=== PATIENT | female | born 1955 | race Caucasian/White ===

== ENCOUNTER 2017-02-19 08:47 | Inpatient (IN) ==
[2017-02-19] MEDS ORDERED: NS 1,000 ML IV PRN (09:02)
[2017-02-19] MEDS ORDERED: NS 1,000 ML IV ONE ×2 (09:12→11:13)
[2017-02-19] MEDS ORDERED: NS 1,000 ML ONE ×2 (09:15→11:25)
[2017-02-19 09:19] LABS: BE 4.3 mmoll (-3.0-3.0); BLOOD TYPE ARTERIAL; DRAW SITE L BRACHIAL; O2(CT) 13.5 mL/dL (15.0-23.0); SAMPLE BLOOD; SAO2 79.3 % (95.0-100.0); THB 13.5 g/dL (11.5-17.4); pH(98.6) 7.35 (7.35-7.45)
[2017-02-19 09:36] LABS: MANUAL DIFF NEEDED? NO
[2017-02-19 09:40] LABS: PCO2(98.6) 57 mmHg (35-45); PO2(98.6) 37 mmHg (60-100)
[2017-02-19 09:41] LABS: ALLEN TEST NO; MODALITY ROOM AIR
--- NOTE | 2017-02-19 09:45 | EKG Report ---
Test Performed on : 02/19/2017 09:35:57 AM Test Reason : stroke like sxs Blood Pressure : / mmHG Vent. Rate : 056 BPM Atrial Rate : 056 BPM P-R Int : 164 ms QRS Dur : 082 ms QT Int : 508 ms P-R-T Axes : 018 040 058 degrees QTc Int : [address] \T\ T wave abnormality, consider anterior ischemia Prolonged QT Abnormal ECG When compared with ECG of 29-SEP-2016 11:40, Non-specific change in ST segment in Inferior leads Nonspecific T wave abnormality no longer evident in Inferior leads T wave inversion more evident in Anterior leads Unconfirmed Result
[2017-02-19] MEDS ORDERED: ZOFRAN ONE (09:47)
[2017-02-19 09:48] LABS: BASO% 0.1 % (0.0-0.8); HEMATOCRIT 38.9 % (37.0-47.0); HEMOGLOBIN 13.8 g/dL (12.0-16.0); IMM GRAN# 0.02 X1000 (0.0-0.04); IMM GRAN% 0.2 % (0.0-0.5); LYMPH# 1.36 X1000 (1.2-3.4); LYMPH% 16.2 % (20.5-51.1); MCH 33.9 PG (27-31); MCHC 35.5 g/dL (33-37); MCV 95.6 FL (81-99); MONO% 4.8 % (1.7-9.3); MPV 8.8 FL (7.4-10.4); NEUT% 78.7 % (42.2-75.2); PLT 189 X1000 (130-400); RBC 4.07 XMIL (4.2-5.4)
[2017-02-19] MEDS ORDERED: ZOFRAN IV ONE (09:52)
[2017-02-19 10:22] LABS: PROTIME 13.5 Seconds (12.1-15.5)
--- NOTE | 2017-02-19 10:22 | Diag Imaging Result Doc PS360 ---
EXAM: HEAD W/O CONTRAST HISTORY: stroke like sxs TECHNIQUE: Dose reduction protocol COMPARISON: 09/28/2016 FINDINGS: No parenchymal hemorrhage. No epidural or subdural hematoma. No subarachnoid hemorrhage. No mass identified on this noncontrasted exam. No hydrocephalus. Mild atrophy. No sinus opacification. IMPRESSION: No hemorrhage. Mild atrophy. Electronically signed by Joss Tobar 02/19/2017 10:20 AM
[2017-02-19 10:23] LABS: PTT PL 25.1 Seconds (22.6-43.9)
--- NOTE | 2017-02-19 10:25 | Diag Imaging Result Doc PS360 ---
EXAM: CHEST-2 VIEWS HISTORY: cough TECHNIQUE: COMPARISON: 09/28/2016 FINDINGS: The lungs are well expanded. The heart is not enlarged. The vessels are not distended. There are no infiltrates. No pleural effusions. IMPRESSION: No pneumonia. Electronically signed by Joss Tobar 02/19/2017 10:23 AM
[2017-02-19 10:40] LABS: ALBUMIN 4.1 g/dL (3.5-5.0); CALCIUM 8.3 mg/dL (8.8-10.2); TOTAL BILIRUBIN 0.7 mg/dL (0.20-1.00); TOTAL PROTEIN 5.7 g/dL (6.3-8.3)
[2017-02-19 10:43] LABS: URINE SOURCE CATH
[2017-02-19 10:47] LABS: BILIRUBIN URINE NEGATIVE (NEGATIVE); BLOOD URINE 2+ (NEGATIVE); CLARITY CLEAR (CLEAR); COLOR YELLOW; GLUCOSE URINE NEGATIVE (NEGATIVE); LEUKOCYTES URINE 1+ (NEGATIVE); NITRITE URINE NEGATIVE (NEGATIVE); PH URINE 6.5; PROTEIN URINE TRACE mg/dL (NEGATIVE); SP GRAVITY URINE 1.015; UROBILINOGEN URINE 1+(1 mg/dL)
[2017-02-19 11:10] LABS: UR AMPHETAMINES QUAL NONE DETECTED (NONE DETECT); UR BARBITUATES QUAL NONE DETECTED (NONE DETECT); UR BENZODIAZEPIN QUAL PRESUMPTIVE POSITIVE (NONE DETECT); UR CANNABINOIDS QUAL NONE DETECTED (NONE DETECT); UR COCAINE QUAL NONE DETECTED (NONE DETECT); UR MDMA QUAL NONE DETECTED (NONE DETECT); UR METHADONE QUAL NONE DETECTED (NONE DETECT); UR METHAMPHETAMINE QUAL NONE DETECTED (NONE DETECT); UR OPIATES QUAL PRESUMPTIVE POSITIVE (NONE DETECT); UR OXYCODONE QUAL NONE DETECTED (NONE DETECT); UR PCP QUAL NONE DETECTED (NONE DETECT); UR TCA QUAL NONE DETECTED (NONE DETECT)
[2017-02-19 11:13] LABS: URINE RBC <10 /HPF (<10)
[2017-02-19 11:14] LABS: URINE CULTURE PL NEEDED? YES; URINE EPITHELIAL CELLS >10 /HPF (<10)
[2017-02-19] MEDS ORDERED: SYNTHROID PO ONE ×2 (11:24→14:00)
[2017-02-19] MEDS ORDERED: CYTOMEL PO ONE (11:30)
[2017-02-19] MEDS: DUONEB (A & A) INH SCH ×4 (12:19→22:57)
[2017-02-19] MEDS ORDERED: FLEXERIL PO ONE (14:02)
[2017-02-19] MEDS ORDERED: AMBIEN PO ONE (18:21)
[2017-02-19] MEDS: LATUDA PO SCH (20:19)
[2017-02-19] MEDS: ZOCOR PO SCH (20:20)
[2017-02-19] MEDS: DESYREL PO SCH (20:20)
[2017-02-19] MEDS: XANAX PO SCH (20:21)
[2017-02-19] MEDS ORDERED: ZOLOFT PO SCH (21:00)
[2017-02-20] MEDS: ZOLOFT PO SCH ×2 (03:15→20:10)
[2017-02-20] MEDS: DUONEB (A & A) INH SCH ×6 (04:10→22:54)
[2017-02-20] MEDS: PRILOSEC PO SCH (07:53)
[2017-02-20] MEDS: SYNTHROID PO SCH (07:54)
[2017-02-20] MEDS: XANAX PO SCH ×3 (07:54→20:10)
[2017-02-20] MEDS: LIBRIUM PO PRN ×2 (09:49→15:57)
[2017-02-20] MEDS: CYTOMEL PO SCH (11:52)
[2017-02-20 16:33] LABS: BE 5.9 mmoll (-3.0-3.0); BLOOD TYPE ARTERIAL; DRAW SITE R RADIAL; METHB 1.2 % (0.0-1.5); O2(CT) 15.5 mL/dL (15.0-23.0); PCO2(98.6) 50 mmHg (35-45); PO2(98.6) 62 mmHg (60-100); SAMPLE BLOOD; SAO2 95.7 % (95.0-100.0); pH(98.6) 7.41 (7.35-7.45)
[2017-02-20 16:39] LABS: MANUAL DIFF NEEDED? NO
[2017-02-20] MEDS: NS 1,000 ML IV SCH (16:39)
[2017-02-20 16:47] LABS: BASO% 0.1 % (0.0-0.8); EOS# 0.01 X1000 (0.0-0.7); EOS% 0.1 % (0.0-10.0); HEMATOCRIT 32.9 % (37.0-47.0); HEMOGLOBIN 11.5 g/dL (12.0-16.0); IMM GRAN# 0.03 X1000 (0.0-0.04); IMM GRAN% 0.3 % (0.0-0.5); LYMPH# 0.95 X1000 (1.2-3.4); LYMPH% 9.5 % (20.5-51.1); MCH 33.2 PG (27-31); MCV 95.1 FL (81-99); MONO# 0.51 X1000 (0.11-0.59); MONO% 5.1 % (1.7-9.3); MPV 8.9 FL (7.4-10.4); NEUT% 84.9 % (42.2-75.2); PLT 153 X1000 (130-400); RBC 3.46 XMIL (4.2-5.4)
[2017-02-20 16:47] LABS: MODALITY CANNULA
[2017-02-20 16:48] LABS: ALLEN TEST YES
[2017-02-20 16:58] LABS: AGAP 13; ALBUMIN 3.4 g/dL (3.5-5.0); ALKALINE PHOSPHATASE 111 U/L (32-104); BUN 10 mg/dL (8-22); CALCIUM 8.1 mg/dL (8.8-10.2); CHLORIDE 85 mmol/L (98-107); COSMO 254; GOT 114 U/L (10-30); GPT 54 U/L (10-36); POTASSIUM 2.7 mmol/L (3.5-5.1); SODIUM 127 mmol/L (136-145); TCO2 30 mmol/L (25-35); TOTAL PROTEIN 5.2 g/dL (6.3-8.3)
[2017-02-20] MEDS: LATUDA PO SCH (20:09)
[2017-02-20] MEDS: ZOCOR PO SCH (20:10)
[2017-02-20] MEDS: DESYREL PO SCH (20:10)
[2017-02-21] MEDS: NS 1,000 ML IV SCH ×4 (01:06→20:37)
[2017-02-21] MEDS: LIBRIUM PO PRN ×3 (01:06→15:54)
[2017-02-21] MEDS: DUONEB (A & A) INH SCH ×6 (03:43→23:26)
[2017-02-21] MEDS: PRILOSEC PO SCH (06:14)
[2017-02-21] MEDS: SYNTHROID PO SCH (06:14)
[2017-02-21] MEDS: CYTOMEL PO SCH (08:59)
[2017-02-21] MEDS: XANAX PO SCH ×2 (08:59→20:34)
[2017-02-21] MEDS ORDERED: TYLENOL PO PRN (16:52)
[2017-02-21] MEDS: KLOR-CON PO SCH ×3 (17:16→19:29)
[2017-02-21] MEDS: ZOCOR PO SCH (20:34)
[2017-02-21] MEDS: DESYREL PO SCH (20:34)
[2017-02-21] MEDS: ZOLOFT PO SCH (20:34)
[2017-02-21] MEDS: LATUDA PO SCH (20:35)
[2017-02-22] MEDS: NS 1,000 ML IV SCH ×5 (03:50→21:03)
[2017-02-22] MEDS: DUONEB (A & A) INH SCH ×6 (04:49→23:13)
[2017-02-22] MEDS: PRILOSEC PO SCH ×2 (05:30→08:58)
[2017-02-22] MEDS: SYNTHROID PO SCH ×2 (05:30→08:58)
[2017-02-22 06:18] LABS: AGAP 8; BUN 4 mg/dL (8-22); CALCIUM 7.9 mg/dL (8.8-10.2); CHLORIDE 98 mmol/L (98-107); COSMO 268; POTASSIUM 2.7 mmol/L (3.5-5.1); SODIUM 135 mmol/L (136-145); TCO2 29 mmol/L (25-35)
[2017-02-22] MEDS: XANAX PO SCH ×2 (08:59→21:04)
[2017-02-22] MEDS: LIBRIUM PO PRN ×2 (08:59→21:10)
[2017-02-22] MEDS: CYTOMEL PO SCH (08:59)
[2017-02-22] MEDS: KLOR-CON PO SCH ×3 (10:06→13:14)
--- NOTE | 2017-02-22 16:17 | HISTORY AND PHYSICAL ---
HISTORY OF PRESENT ILLNESS: Whit Cerna is a 61-year-old female who is an irregular patient of mine, who I follow for dyslipidemia, thyroid replacement disorder, reflux disease, and depression. She also has a background history of lymphoma that is currently in remission. She presented to the emergency room, brought in by her the day of presentation with worsening left-sided weakness. The patient had been going to PT for the past early part of the year for left-sided weakness but stated it has gotten progressively worse over the last 2 days. reports that she was walking independently 3 days prior to her presentation. Yesterday she had been in bed all day, tends to stay in bed all day, not very motivated. This morning of presentation was unable to get to the bathroom and walk there, and complained of generalized abdominal pain, denying shortness of breath or chest pain. These symptoms all seemingly started 2 days ago. She presented to the emergency room on the day of admission with a temperature of 98.8 degrees, a pulse of 59, respiratory rate 22, BP was 88/61. Her O2 saturation was 85%. She had a CBC that was relatively unremarkable. Her hematocrit was 38.9, white count was 8400, platelet count was 189,000. Her electrolytes were remarkably unusual. She had a sodium of 119, potassium of 3, chloride of 74, CO2 of 23, BUN of 10, creatinine 2. Glucose was 145. She had a chest x-ray that seemed to be normal. She had an EKG that showed a sinus bradycardia at 56 with normal axis and a somewhat prolonged QT interval, nonspecific ST-segment changes. She had a CAT scan of her head that was negative except for some mild atrophic changes. MEDICATIONS: Her medications include the following: She is taking Levoxyl 75 mcg daily. Liothyronine (Cytomel) 25 mcg daily for hypothyroidism. She is on 20 mg of Prilosec for reflux disease. She takes Zocor 40 at bedtime for her dyslipidemia. She also takes Zoloft 100 daily for her depression. Trazodone as well, 200 p.o. at bedtime. Periodically takes Ambien. She takes Xanax. He had been on Latuda but it has recently been switched to Trileptal which may be playing a role in her hyponatremia. REVIEW OF SYSTEMS: Constitutional: She denies any chills or fever. She has generalized lethargy, stays in the bed most of the time, only getting up to go to the bathroom, and this had become particularly worrisome lately. Eyes: She denies any change in visual frankel, field cuts, irritation, lenticular problems. Ears, nose, eyes, and throat: She has no history of pharyngitis, otitis or sinusitis. Cardiovascular: She denies chest pain, palpitations. No edema, PND, orthopnea, claudication, exertional dyspnea, dizziness or syncope. Respiratory: She denies cough. She is short of breath. She is a wheezer. She is a chain smoker. Gastrointestinal: Denies nausea, vomiting, diarrhea, constipation, melena, hematochezia, hematemesis. Genitourinary: No polyuria, pyuria, dysuria, urinary continence. Musculoskeletal: Has some chronic issues with pain in her back and her neck where she has previously been operated on. No arthritis, no arthralgias. No radicular problems with her back. Skin: No rashes, lesions, cellulitis. Neurological: No focal deficits. She denies dizziness, vertigo, headaches or migraines. Psychiatric: History of bipolar depression. Endocrine: No polyuria, polydipsia, polyphagia. She is on thyroid hormone replacement. Hematological: No bleeding or clotting disorders. Allergies: No asthma, hayfever. PAST MEDICAL/SURGICAL HISTORY: She has COPD from smoking. She has hyperlipidemia. She has hypertension. She has a history of asthma. She has GERD. She has generalized arthritis. She has lots of spinal issues. She is bipolar, depressed and anxious. She has diabetes. She has had a thyroid disorder, and she has follicular lymphoma that is currently in remission. She has had a previous cholecystectomy. She has an indwelling port for her chemotherapy. She has had multiple orthopedic surgeries including shoulder surgery, neck surgery, back surgery and hand surgeries. PHYSICAL EXAMINATION: VITAL SIGNS: At the time of admission, her vital signs: Temperature was 98.8 degrees, pulse was 59, respiratory rate was 22, BP 88/61, O2 saturation was 81%. HEENT: Head was normocephalic. Eyes: Were AMELIA. EOMs intact and conjugate. Sclerae were anicteric and clear. Nares patent. Oropharynx negative. NECK: Supple. Bounding carotids, without thyromegaly or lymphadenopathy. Midline trachea. CHEST: Diminished breath sounds. Rhonchi throughout. CARDIOVASCULAR EXAM: She had a regular rhythm and rate. No murmurs, gallops, clicks or rubs. ABDOMEN: Obese, soft. No hepatosplenomegaly. No CVA tenderness. EXTREMITIES: Negative for clubbing, cyanosis, edema. NEUROLOGICAL EXAM: Did not reveal any neurological deficits. DIAGNOSTIC DATA: A blood gas done in the ER revealed a pH of 735, PCO2 of 57, PO2 of 37, carboxyhemoglobin 9.30 on room air indicating respiratory and ventilatory failure and heavy smoking. Her chemistries revealed a sodium of 119, potassium of 3, chloride of 74. CO2 was 23, BUN was 10, creatinine was 2.0. Her GFR estimated at 5. Her BUN/creatinine ratio of 5. Her sodium of 119 is a new problem for her and may be related to her recent 2 week trial of Trileptal from her psychiatrist. Blood sugar was 149. Her calcium was 8.3. AST 115, ALT 56, alkaline phosphatase 136, total protein 57, albumin 4.1. She also seemed to be somewhat dehydrated and hypokalemic adding to her weakness along with all these other issues, and her CBC was fairly unremarkable. She also of note has had a recent bout of PRES syndrome which was associated with a bout of hypertension and a seizure induced altered mental status associated with a severe headache related to edema in the posterior aspect of her head. [facility] her [facility] visit, came home and stated she had been put in rehab. There was no therapy done regarding PRES. There are no long-term issues with that. She was admitted in hospital for pulmonary toilette, and she also had in the ER a CT of her head which was said to be normal with just some mild atrophy, and she had a chest x-ray which showed no significant pneumonia. There was a questionable infiltrate but we will follow that as an inpatient. cc: Esequiel Virk MD
[2017-02-22] MEDS ORDERED: PREPARATION H OINT TOP PRN (20:03)
[2017-02-22] MEDS: DESYREL PO SCH (21:03)
[2017-02-22] MEDS: ZOCOR PO SCH (21:04)
[2017-02-22] MEDS: ZOLOFT PO SCH (21:04)
[2017-02-23] MEDS: DUONEB (A & A) INH SCH ×5 (03:56→20:22)
[2017-02-23] MEDS ORDERED: IMODIUM PO ONE ×2 (05:29→10:18)
[2017-02-23] MEDS: NS 1,000 ML IV SCH ×3 (05:41→21:50)
[2017-02-23] MEDS: SYNTHROID PO SCH (06:02)
[2017-02-23] MEDS: PRILOSEC PO SCH (06:02)
[2017-02-23] MEDS: LIBRIUM PO PRN ×3 (06:02→17:57)
[2017-02-23 06:32] LABS: AGAP 12; ALBUMIN 3.3 g/dL (3.5-5.0); ALKALINE PHOSPHATASE 100 U/L (32-104); BUN 3 mg/dL (8-22); CALCIUM 7.9 mg/dL (8.8-10.2); CHLORIDE 100 mmol/L (98-107); COSMO 274; GOT 74 U/L (10-30); GPT 48 U/L (10-36); SODIUM 139 mmol/L (136-145); TCO2 27 mmol/L (25-35)
[2017-02-23] MEDS: XANAX PO SCH ×2 (09:23→21:48)
[2017-02-23] MEDS: CYTOMEL PO SCH (09:23)
[2017-02-23] MEDS: KLOR-CON PO SCH ×6 (11:00→18:30)
[2017-02-23 14:21] LABS: AGAP 9; ALBUMIN 3.4 g/dL (3.5-5.0); ALKALINE PHOSPHATASE 96 U/L (32-104); BUN 2 mg/dL (8-22); CALCIUM 7.9 mg/dL (8.8-10.2); CHLORIDE 96 mmol/L (98-107); COSMO 267; GOT 67 U/L (10-30); GPT 49 U/L (10-36); POTASSIUM 2.6 mmol/L (3.5-5.1); SODIUM 135 mmol/L (136-145); TCO2 30 mmol/L (25-35); TOTAL PROTEIN 5.3 g/dL (6.3-8.3)
[2017-02-23] MEDS ORDERED: MAGNESIUM SULFATE 2 GM/S.W.I. 2 GM/50 ML IVPB IV ONE (16:06)
[2017-02-23] MEDS: DESYREL PO SCH (21:47)
[2017-02-23] MEDS: ZOLOFT PO SCH (21:48)
[2017-02-23] MEDS: COREG PO SCH (21:48)
[2017-02-23] MEDS: ZOCOR PO SCH (21:48)
[2017-02-23 23:52] LABS: AGAP 11; BUN 2 mg/dL (8-22); CALCIUM 7.7 mg/dL (8.8-10.2); CHLORIDE 95 mmol/L (98-107); COSMO 270; SODIUM 137 mmol/L (136-145); TCO2 31 mmol/L (25-35)
[2017-02-24] MEDS: DUONEB (A & A) INH SCH ×7 (00:22→22:50)
[2017-02-24] MEDS: KLOR-CON PO SCH ×3 (00:59→03:19)
[2017-02-24] MEDS: LIBRIUM PO PRN ×2 (01:02→15:08)
[2017-02-24 04:07] LABS: AGAP 8; BUN 2 mg/dL (8-22); CALCIUM 7.7 mg/dL (8.8-10.2); CHLORIDE 97 mmol/L (98-107); COSMO 268; POTASSIUM 3.5 mmol/L (3.5-5.1); SODIUM 136 mmol/L (136-145); TCO2 31 mmol/L (25-35)
[2017-02-24] MEDS: PRILOSEC PO SCH (06:12)
[2017-02-24] MEDS: SYNTHROID PO SCH (06:12)
[2017-02-24] MEDS: NS 1,000 ML IV SCH ×3 (06:12→22:14)
[2017-02-24] MEDS ORDERED: IMODIUM PO PRN (08:04)
[2017-02-24] MEDS: CYTOMEL PO SCH (09:00)
[2017-02-24] MEDS: XANAX PO SCH ×2 (09:00→20:32)
[2017-02-24] MEDS: COREG PO SCH ×2 (09:01→20:31)
[2017-02-24] MEDS: DESYREL PO SCH (20:31)
[2017-02-24] MEDS: ZOCOR PO SCH (20:31)
[2017-02-24] MEDS: ZOLOFT PO SCH (20:31)
[2017-02-25] MEDS: DUONEB (A & A) INH SCH ×3 (02:43→10:58)
[2017-02-25] MEDS: NS 1,000 ML IV SCH (05:53)
[2017-02-25] MEDS: PRILOSEC PO SCH (06:36)
[2017-02-25] MEDS: SYNTHROID PO SCH (06:36)
[2017-02-25] MEDS: CYTOMEL PO SCH (09:22)
[2017-02-25] MEDS: XANAX PO SCH (09:22)
[2017-02-25] MEDS: COREG PO SCH (09:22)
--- NOTE | 2017-02-25 09:52 | DISCHARGE SUMMARY ---
ADMISSION DATE: 02/19/2017 DISCHARGE DATE: 02/25/2017 This patient is a clinic patient of [facility]. Ms. Cerna presented to the emergency room on the day of her admission 02/19/2017 where she presented with multiple complaints. She is a 61-year-old female who has a history of dyslipidemia, thyroid replacement disorder, reflux disease and depression. She has a background history of lymphoma that is currently in remission. She presented to the emergency room brought in by her the day of presentation with worsening left-sided weakness. The patient had been going to for the past part of the year and had actually been walking on her own for the last 3 or 4 days, but has subsequently gotten worse over the last 3 days with no particular incident. For the past couple days she has been poorly motivated, staying in bed. The morning of presentation was unable to get to the bathroom and walk there. She complained of generalized abdominal pain. She denies shortness of breath or chest pain. These all symptoms have been present for approximately 2 days. When she presented to the emergency room she had a temperature of 98.8 degrees, her pulse was 59, respiratory 22, blood pressure was 88/61. Her O2 saturation was 85%. She had a hematocrit of 38.9, white count of 8400, platelet count was 189,000. Her electrolytes were remarkably unusual. She had a sodium of 119, potassium of 3, chloride of 74, CO2 of 23, a BUN of 10, creatinine of 2. Glucose was 145. She had a normal chest x-ray, EKG, sinus bradycardia, prolonged Q, nonspecific ST-segment changes. CT of her head was negative except for some mild atrophic changes. She had been earlier hospitalized here in the hospital with PRES syndrome and was sent to [facility] for evaluation and treatment. She has a background and long-standing history of thyroid hormone replacement. She is being followed by Oncology for her lymphoma. She also has COPD, an ongoing smoker who has hypoxemia and hyper- carbonemia so she was admitted to the hospital with multiple problems; hypoxemia with a blood gas that showed her pH to be 735. PCO2 was 57, PO2 was 37. Carboxyhemoglobin was 9.3. The following day off cigarettes her pH was 741, pCO2 was 50, PO2 now was 62. Carboxyhemoglobin was 2.8 on 28%. The patient's additional laboratory during this stay as previously mentioned, she presented with a sodium of 119, potassium was 3, chloride 74, CO2 was 23, BUN 10, creatinine 0.2. She had elevations of her LFTs; an AST of 115, an ALT of 56, alkaline phosphatase was 136, bilirubin was normal. We are scribing some of these abnormalities of her liver to the fact that she is drinking 3 quarts of rum a week. She was treated with normal saline. We got her sodium up to 136, potassium 3.5, chloride was 97. CO2 was 31. BUN is 2, creatinine 0.3. GFR greater than 60. She was also noted have hypomagnesemia 1.2. She was corrected to 1.7. Her potassium was corrected up to 3.5. SUMMARY: She had COPD, cross gases, hyponatremia which we think may be related to her alcohol, but also could be related to her new psychiatric medicines that we have stopped. She had been on several mood stabilizers in the past. We are going to continue to treat her anxiety and depression with typical medications, so we had a reversal of some of her pulmonary findings. Her sodium was corrected, her hypokalemia was corrected, her hypomagnesemia was corrected. The alcohol was removed, the cigarettes were removed, and she started becoming more spontaneous. MEDICINES: Per NOV, medicines currently are: 1. DuoNeb 4 times a day as needed. 2. Librium which is being stopped. 3. Desyrel 200 at bedtime. 4. Xanax 1 b.i.d. 5. Zocor 40. 6. Zoloft 100. 7. Prilosec 20. 8. She was taking Synthroid 75 mcg. 9. Cytomel 25 mcg. We are going to just simplify that and make her take Synthroid 100 mg. We feel like she would benefit from physical therapy, in house therapy, so she is going to be discharged today to be sent to a rehab center. cc: Esequiel Virk MD
[2017-02-25 11:55] VITALS: BP 179/91
--- NOTE | 2017-03-03 02:47 | PROVIDER DOCUMENTATION ---
This chart was entered by Tressa Flower Scribe, acting as scribe for Esequiel Virk MD. HPI-General Adult - General Chief Complaint: Stroke-Like Symptoms Stated Complaint: WEAKNESS Time Seen by Provider: 02/19/17 08:56 Source: patient Allergies/Adverse Reactions: Patient Allergies Allergy/AdvReac Type Severity Reaction Status Date / Time bacitracin Allergy Severe RASH Verified 01/24/17 14:01 [From Neosporin ([id number])] bacitracin zinc * Allergy Severe RASH Verified 01/24/17 14:01 [From Neosporin ([id number])] codeine Allergy Severe ITCHING Verified 01/24/17 14:01 nalbuphine HCl * Allergy Severe Unknown Verified 01/24/17 14:01 [From Nubain] neomycin sulfate * Allergy Severe RASH Verified 01/24/17 14:01 [From Neosporin ([id number])] polymyxin B Allergy Severe RASH Verified 01/24/17 14:01 [From Neosporin ([id number])] Home Medications: Home Medication List Medication Instructions Recorded Confirmed Last Taken Type Omeprazole [Prilosec] 20 mg PO DAILY 10/29/13 02/19/17 02/18/17 08:00 History SIMVAstatin [Zocor] 40 mg PO QHS 10/29/13 02/19/17 02/18/17 22:00 History Sertraline HCl [Zoloft] 100 mg PO HS 10/29/13 02/19/17 09/24/16 History Trazodone [Desyrel] 200 mg PO QHS 10/29/13 02/19/17 02/18/17 22:00 History Alprazolam [Xanax] 1 mg PO BID 09/25/16 02/19/17 02/18/17 08:00 History Carvedilol [Coreg] 3.125 mg PO BID 02/23/17 02/23/17 Unknown History Albuterol 2.5MG/Ipratrop 0.5MG 3 ml INH RTQ4H neb 02/25/17 Unknown Rx [Duoneb (A & A)] Levothyroxine Sodium [Levoxyl] 100 mcg PO DAILY #0 02/25/17 02/19/17 02/19/17 13:00 Rx - History of Present Illness -Gen Adult Nature of Presenting Problems: 61 yo F presents to the ER with complaint of worsening L sided weakness. Pt goes to PT for L sided weakness, but states it has gotten progressively worse over the last 2 days. reports her walking x3 days ago. Yesterday was in bed all day, and this morning pt was unable to walk to the bathroom. Pt complains of generalized abdominal pain. Denies SOB or CP. Onset/Duration: reports: 2 days ago Timing: reports: still present Associated Symptoms: reports: weakness, trouble walking. denies: chest pain, shortness of breath Review of Systems - Adult - REVIEW OF SYSTEMS - ADULT Constitutional: denies: chills, fever Eyes: reports: no symptoms reported Ears, Nose, Mouth & Throat: reports: no symptoms reported Cardiovascular: denies: chest pain, palpitations Respiratory: denies: cough, shortness of breath, wheezing Gastrointestinal: denies: diarrhea, nausea, vomiting Genitourinary: reports: no symptoms reported Musculoskeletal: reports: no symptoms reported Integumentary: reports: no symptoms reported Neurological: denies: dizziness/vertigo, headache/migraines Psychiatric: reports: no symptoms reported Endocrine: reports: no symptoms reported Hematologic/Lymphatic: reports: no symptoms reported Allergic/Immunologic: reports: no symptoms reported All Other Systems: Reviewed and Negative Past History - Adult - PAST MEDICAL HISTORY-ADULT Review of Records: reports: Nursing Assessment Review, Medications Reviewed Cardiovascular: reports: hyperlipidemia Respiratory: reports: asthma, COPD Gastrointestinal: reports: GERD Musculoskeletal: reports: arthritis Psychiatric: reports: anxiety, bipolar, depression Endocrine/Immune: reports: Diabetes, Lymphoma, thyroid disorder (hypo) - PRIOR SURGERIES/PROCEDURES Surgical/Procedure History: reports: cholecystectomy, indwelling device (port), orthopedic (extremity), other (cataract) - PRIOR HOSPITALIZATIONS Prior Hospitalizations: reports: none - IMMUNIZATION STATUS Childhood Immunizations: See Nurse Assessment Flu Vaccine: See Nurse Assessment Physical Exam-General - PHYSICAL EXAM-ADULT Initial Vital Signs Reviewed: Yes - CONSTITUTIONAL General Appearance: alert, no apparent distress - EYES Eyes: pink conjunctivae, other (pinpoint pupils). negative: PERRL/EOMI - HEAD, EARS, NOSE, MOUTH & THROAT HENMT: normocephalic/atraumatic, normal ENT inspection - NECK Neck: supple, normal inspection - RESPIRATORY Respiratory: no respiratory distress, no accessory muscle use, wheezing - CARDIOVASCULAR Cardiovascular: normal peripheral pulses, regular rate, rhythm - MUSCULOSKELETAL Back Exam: no CVA tenderness, no vertebral tenderness Extremity: normal gait, normal inspection - SKIN Integumentary: normal color, warm/dry - NEUROLOGIC Neurologic: grossly normal, no motor/sensory deficits - PSYCHIATRIC Psych/Mental Status: normal mood/affect, normal thought content, normal thought process, oriented x 3 Progress - PLAN OF CARE/RESULTS Progress/Plan/Lab Results: Vital Signs - 8 hr 02/19/17 08:51 Temperature 98.8 F Pulse Rate 59 L Respiratory Rate 22 Blood Pressure 88/61 O2 Sat by Pulse Oximetry 85 L Pt reports drinking 3 bottles of rum weekly Result Diagrams: 02/20/17 16:36 02/24/17 03:35 - EKG 1 Time of EKG reading by physician:: 09:35 EKG Read and Signed by:: Esequiel Virk EKG Interpretation (*Must complete 3 of following elements*): Abnormal Rate: 56 Rhythm: sinus arron [place]: normal QRS: normal TN Interval: prolonged (QT) ST Wave: non-specific ST changes (ST&T wave abnormality, consider anterior ischemia) - XRAY 1 XRAY Study: Chest Impression: Normal (no pneumonia, per radiologist) - CT/MRI 1 CT Study: Head Impression: Normal (no hemhorrage, mild atrophy. Per radiologist) - CONSULTS/PCP/HOSPITALIST Notification #1 *Consult/PCP/Hospitalist*: Dr. Anders Time Discussed: 11:10 Consult Disposition: Will see in ED, Admit Departure - Departure Date of Disposition Decision: 02/19/17 Time of Disposition Decision: 11:11 DIAGNOSIS: Hyponatremia, Respiratory failure, Alcohol abuse Disposition: ADMITTED INPATIENT 09 Certified Medical Emergency: Emergent Condition: Stable - Critical Care Note This patient required my direct & personal management of CC.: No This chart was documented by the indicated scribe, (Tressa Flower Scribe) and accurately reflects the services I performed and decisions made by me, Esequiel Virk MD, as attested by the provider's signature.
== END 2017-02-25 13:15 ==
LOC: P.ED 08:47 → P.MEDSURG 08:47 → OBSVTOIN 11:35
PROVIDERS: ADMIT Internal Medicine; ATTEND Internal Medicine

== ENCOUNTER 2017-05-13 11:13 | Observation (INO) ==
[2017-05-13 12:52] LABS: MANUAL DIFF NEEDED? NO
[2017-05-13 12:55] LABS: BASO% 0.2 % (0.0-0.8); EOS# 0.02 X1000 (0.0-0.7); EOS% 0.2 % (0.0-10.0); HEMATOCRIT 40.9 % (37.0-47.0); HEMOGLOBIN 13.1 g/dL (12.0-16.0); IMM GRAN# 0.01 X1000 (0.0-0.04); IMM GRAN% 0.1 % (0.0-0.5); LYMPH# 1.02 X1000 (1.2-3.4); LYMPH% 10.6 % (20.5-51.1); MCH 32.4 PG (27-31); MCV 101.2 FL (81-99); MONO# 0.44 X1000 (0.11-0.59); MONO% 4.6 % (1.7-9.3); NEUT% 84.3 % (42.2-75.2); PLT 150 X1000 (130-400); RBC 4.04 XMIL (4.2-5.4)
[2017-05-13 13:13] LABS: INR 0.83 (0.86-1.15); PROTIME 12.1 Seconds (12.1-15.5); PTT PL 23.9 Seconds (22.6-43.9)
[2017-05-13 13:21] LABS: AGAP 11; ALBUMIN 3.9 g/dL (3.5-5.0); ALKALINE PHOSPHATASE 81 U/L (32-104); BUN 9 mg/dL (8-22); CHLORIDE 98 mmol/L (98-107); CK PROFILE 50 U/L (24-173); COSMO 264; GOT 14 U/L (10-30); GPT 12 U/L (10-36); POTASSIUM 4.6 mmol/L (3.5-5.1); SODIUM 132 mmol/L (136-145); TCO2 23 mmol/L (25-35); TOTAL PROTEIN 6.4 g/dL (6.3-8.3)
[2017-05-13 13:38] LABS: BE -1.2 mmoll (-3.0-3.0); BLOOD TYPE ARTERIAL; DRAW SITE R RADIAL; METHB 1.2 % (0.0-1.5); O2(CT) 15.7 mL/dL (15.0-23.0); PCO2(98.6) 48 mmHg (35-45); PO2(98.6) 55 mmHg (60-100); SAMPLE BLOOD; SAO2 95.8 % (95.0-100.0); THB 13.9 g/dL (11.5-17.4); pH(98.6) 7.33 (7.35-7.45)
[2017-05-13 13:43] LABS: MODALITY CANNULA
[2017-05-13 13:44] LABS: ALLEN TEST YES
[2017-05-13 14:59] LABS: UR AMPHETAMINES QUAL NONE DETECTED (NONE DETECT); UR BARBITUATES QUAL NONE DETECTED (NONE DETECT); UR BENZODIAZEPIN QUAL PRESUMPTIVE POSITIVE (NONE DETECT); UR COCAINE QUAL NONE DETECTED (NONE DETECT)
[2017-05-13 15:00] LABS: UR CANNABINOIDS QUAL NONE DETECTED (NONE DETECT); UR MDMA QUAL NONE DETECTED (NONE DETECT); UR METHADONE QUAL NONE DETECTED (NONE DETECT); UR METHAMPHETAMINE QUAL NONE DETECTED (NONE DETECT); UR OPIATES QUAL NONE DETECTED (NONE DETECT); UR OXYCODONE QUAL PRESUMPTIVE POSITIVE (NONE DETECT); UR PCP QUAL NONE DETECTED (NONE DETECT); UR TCA QUAL NONE DETECTED (NONE DETECT)
[2017-05-13 15:04] LABS: BILIRUBIN URINE NEGATIVE (NEGATIVE); BLOOD URINE NEGATIVE (NEGATIVE); CLARITY CLEAR (CLEAR); COLOR YELLOW; GLUCOSE URINE NEGATIVE (NEGATIVE); LEUKOCYTES URINE TRACE (NEGATIVE); NITRITE URINE NEGATIVE (NEGATIVE); PROTEIN URINE NEGATIVE (NEGATIVE); SP GRAVITY URINE 1.015; UROBILINOGEN URINE NORMAL
[2017-05-13 15:24] LABS: URINE CAST NONE SEEN /LPF; URINE CRYSTAL NONE SEEN /HPF; URINE CULTURE PL NEEDED? YES; URINE EPITHELIAL CELLS >10 /HPF (<10); URINE RBC <10 /HPF (<10)
[2017-05-13 15:25] LABS: URINE SOURCE CLEAN CATCH
[2017-05-13] MEDS ORDERED: ATIVAN IM ONE (15:25)
[2017-05-13] MEDS ORDERED: ATIVAN ONE (15:29)
[2017-05-13] MEDS ORDERED: NS 1,000 ML IV ONE ×2 (17:20→18:00)
[2017-05-13] MEDS ORDERED: NS 1,000 ML ONE (17:21)
[2017-05-13] MEDS: DUONEB (A & A) INH SCH ×2 (19:51→23:50)
[2017-05-13] MEDS ORDERED: ZOLOFT PO SCH (21:00)
[2017-05-13] MEDS ORDERED: ZOCOR PO SCH (21:00)
[2017-05-13] MEDS: COREG PO SCH (21:45)
[2017-05-13] MEDS: DESYREL PO SCH ×2 (21:45→21:58)
[2017-05-13] MEDS: XANAX PO SCH (21:46)
[2017-05-14] MEDS: DUONEB (A & A) INH SCH ×4 (03:49→16:00)
[2017-05-14] MEDS ORDERED: SYNTHROID PO SCH (07:00)
[2017-05-14] MEDS ORDERED: PRILOSEC PO SCH (07:00)
[2017-05-14] MEDS ORDERED: TYLENOL WITH CODEINE #3 PO PRN (09:10)
[2017-05-14] MEDS: XANAX PO SCH (09:21)
[2017-05-14] MEDS: COREG PO SCH (09:22)
[2017-05-14] MEDS ORDERED: ZOFRAN ODT PO PRN (09:50)
[2017-05-14 15:38] VITALS: BP 119/59
== END 2017-05-14 18:40 | disposition home or self-care (01) ==
LOC: P.ED 11:13 → P.ICU 16:31 → INTOOBSV 16:31 → P.MEDSURG 05-14 09:10
PROVIDERS: ADMIT Internal Medicine; ATTEND Internal Medicine

== ENCOUNTER 2019-03-22 03:07 | Inpatient (IN) ==
[2019-03-22] MEDS: NS 1,000 ML IV ONE ×2 (03:53→04:29)
[2019-03-22] MEDS ORDERED: ZOFRAN IV ONE ×2 (03:53→04:16)
--- NOTE | 2019-03-22 03:53 | PROVIDER DOCUMENTATION ---
HPI-Abdominal Pain/GI Problem - General Chief Complaint: Abdominal Pain Stated Complaint: ABD PAIN Time Seen by Provider: 03/22/19 03:52 Source: patient Allergies/Adverse Reactions: Patient Allergies Allergy/AdvReac Type Severity Reaction Status Date / Time bacitracin Allergy Severe RASH Verified 03/22/19 03:28 [From Neosporin ([id number])] bacitracin zinc * Allergy Severe RASH Verified 03/22/19 03:28 [From Neosporin ([id number])] nalbuphine HCl * Allergy Severe Unknown Verified 03/22/19 03:28 [From Nubain] neomycin sulfate * Allergy Severe RASH Verified 03/22/19 03:28 [From Neosporin ([id number])] polymyxin B Allergy Severe RASH Verified 03/22/19 03:28 [From Neosporin ([id number])] lamotrigine [From Lamictal] AdvReac Unknown Verified 03/22/19 03:27 Home Medications: Home Medication List Medication Instructions Recorded Confirmed Last Taken Type Omeprazole [Prilosec] 20 mg PO DAILY 10/29/13 01/29/18 01/28/18 History 20 MG Trazodone [Desyrel] 200 mg PO QHS 10/29/13 01/29/18 01/28/18 History 200 MG Alprazolam [Xanax] 1 mg PO BID 09/25/16 01/29/18 01/28/18 History 1 MG Levothyroxine Sodium [Levoxyl] 100 mcg PO DAILY #0 02/25/17 01/29/18 01/28/18 Rx 100 MCG Acetaminophen with Codeine 1 tab PO Q6HR PRN 01/29/18 01/29/18 01/28/18 History [Acetaminophen-Cod #4 Tablet] 1 TAB Azithromycin 250 mg PO DAILY #4 tablet 01/29/18 Unknown Rx Butalbital/APAP/Caffeine [Fioricet] 1 each PO Q4H PRN PRN #20 tablet 01/29/18 Unknown Rx Clonidine HCl 0.1 mg PO TID PRN #60 tablet 01/29/18 Unknown Rx Desvenlafaxine [Desvenlafaxine ER] 100 mg PO DAILY 01/29/18 01/29/18 01/28/18 History 100 MG - History of Present Illness-ABD Nature of Presenting Problems: Patient is a 63 year old white female with history of [place] lymphoma (treated), S/P cholecystectomy with postoperative bowel obstruction,chronic diarrhea, severe COPD requiring home oxygen, former alcoholic, and tobacco abuse who presents with 9/10 generalized abdominal cramping and distention since 8pm tonight after eating [employer] pizza. Denies chest pain, worsening SOB, or productive cough. Abdominal Pain Onset Location: reports: generalized abdomen Pain Radiation: reports: no radiation Quality of Pain: reports: cramping Onset/Duration: reports: gradual, this evening Timing: reports: still present Activities at Onset: reports: none Modifying Factors: improves with: eating Last BM: unsure Dark Stools Present?: reports: none noticed Rectal Bleeding: reports: none Rectal Pain: reports: none Similar Symptoms Previously?: Yes Review of Systems - Adult - REVIEW OF SYSTEMS - ADULT Constitutional: denies: chills, fever Eyes: denies: blurred vision Ears, Nose, Mouth & Throat: denies: throat pain, throat swelling Cardiovascular: denies: chest pain Respiratory: denies: shortness of breath Gastrointestinal: reports: abdominal pain, diarrhea, nausea, vomiting. denies: hematemesis, constipation, rectal bleeding Genitourinary: reports: no symptoms reported Musculoskeletal: reports: no symptoms reported Integumentary: reports: no symptoms reported Neurological: reports: no symptoms reported Psychiatric: reports: no symptoms reported Endocrine: reports: no symptoms reported Hematologic/Lymphatic: reports: no symptoms reported Allergic/Immunologic: reports: no symptoms reported All Other Systems: Reviewed and Negative Past History - Adult - PAST MEDICAL HISTORY-ADULT Review of Records: reports: Old Records Reviewed, Nursing Assessment Review, Medications Reviewed, Social history reviewed & non-contributory. Major Childhood Illnesses: reports: denies history Cardiovascular: reports: HTN, hyperlipidemia Respiratory: reports: asthma, COPD Gastrointestinal: reports: GERD Obstetrical/Gynecological: reports: denies history Genitourinary: reports: denies history Musculoskeletal: reports: arthritis Neurological: reports: Seizures/Epilepsy Psychiatric: reports: anxiety, bipolar, depression Endocrine/Immune: reports: Diabetes, Lymphoma, thyroid disorder (hypo) Other Conditions: reports: denies history - PRIOR SURGERIES/PROCEDURES Surgical/Procedure History: reports: cholecystectomy, indwelling device (port), orthopedic (extremity), other (cataract) - PRIOR HOSPITALIZATIONS Prior Hospitalizations: reports: none - IMMUNIZATION STATUS Childhood Immunizations: See Nurse Assessment Flu Vaccine: See Nurse Assessment - FAMILY HISTORY Family History: reviewed, not pertinent - SOCIAL HISTORY Smoking: greater than 1 pack/day Provider spent 3-5 mins advising pt. on dangers of tobacco.: Discussed manners to quit use, and f/u contacts for add'l counseling. Substance Use: denies Alcohol Use Frequency: sober (former use) Living Situation: family Physical Exam-General - PHYSICAL EXAM-ADULT Initial Vital Signs Reviewed: Yes - CONSTITUTIONAL General Appearance: alert, no apparent distress, obese, other (in pain) - EYES Eyes: other (clear) - HEAD, EARS, NOSE, MOUTH & THROAT HENMT: normocephalic/atraumatic, moist mucous membranes - NECK Neck: non-tender, full range of motion, supple - RESPIRATORY Respiratory: lungs clear, decreased breath sounds - CARDIOVASCULAR Cardiovascular: tachycardia - GASTROINTESTINAL (ABDOMEN) Abdominal Exam: distended, tenderness (diffuse), other (decreased bowel sounds). negative: guarding, rebound - LYMPHATIC Lymphatic: no adenopathy - MUSCULOSKELETAL Back Exam: normal inspection, no CVA tenderness Extremity: normal range of motion, non-tender - SKIN Integumentary: normal turgor, warm/dry - NEUROLOGIC Neurologic: grossly normal - PSYCHIATRIC Psych/Mental Status: oriented x 3, anxious Progress - PLAN OF CARE/RESULTS Progress/Plan/Lab Results: Vital Signs - 8 hr 03/22/19 03:19 Temperature 98.8 F Pulse Rate 107 H Respiratory Rate 18 Blood Pressure 173/73 O2 Sat by Pulse Oximetry 93 L Orders Category Date Time Status Saline Loc DIRECTED Care 03/22/19 03:52 Ordered NPO Diet 03/22/19 03:52 Ordered CBC WITH ELECTRONIC DIFF [HEME] Stat Lab 03/22/19 03:52 Ordered COMPREHENSIVE METABOLIC PANEL [CHEM] Stat Lab 03/22/19 03:52 Uncollected LIPASE [CHEM] Stat Lab 03/22/19 03:[address] W/POSS RFLX CULT [URINALYSIS] Stat Lab 03/22/19 03:52 Uncollected Ns 1000 ml IV Bolus X1 Med 03/22/19 03:53 Ordered 0.9% Sodium Chloride Inj [Ns] 1,000 ml IV 999 mls/hr Ondansetron [Zofran] Med 03/22/19 03:53 Once 4 mg IV NOW ONE Result Diagrams: 03/22/19 03:45 03/22/19 04:45 - CT/MRI 1 CT Study: Abdomen, Pelvis CT Results: HIGH GRADE SMALL BOWEL OBSTRUCTION - CONSULTS/PCP/HOSPITALIST Notification #1 *Consult/PCP/Hospitalist*: DR. BINGHAM, [employer] Time Discussed: 06:10 Reason/Comments: ADMIT TO PCP AT [facility] & CONSULT SURGERY Consult Disposition: Admit #2 Consult: DR MC Time Discussed: 06:35 Consult Disposition: Will see in ED #3 Consult: Dr Mc Time Discussed: 08:06 Reason/Comments: Came to see pt in the ER and will admit. Consult Disposition: Admit - CHANGE OF SHIFT REPORT (ED Provider) 1 Report Given and Care Transferred to:: Dr. Munson Items Pending: Physician Consult/Arrival Departure - Departure Date of Disposition Decision: 03/22/19 Time of Disposition Decision: 08:07 DIAGNOSIS: Small bowel obstruction, Lactic acidosis Leukocytosis Qualifiers: Leukocytosis type: unspecified Qualified Code(s): D72.829 - Elevated white blood cell count, unspecified Urinary tract infection Qualifiers: Urinary tract infection type: site unspecified Hematuria presence: with hematuria Qualified Code(s): N39.0 - Urinary tract infection, site not specified Disposition: ADMITTED INPATIENT 09 Certified Medical Emergency: Emergent Condition: Fair Referrals and Follow-Ups: Esequiel Mc MD [Primary Care Provider] - - Critical Care Note This patient required my direct & personal management of CC.: No Attestation - Physician/ AMADOU Attestation Patient care was provided by Advanced Practice Provider:: No The physician spent face to face time with patient:: Yes Advanced Practice Provider documentation review:: Supervising physician onsite and consulted in the evaluation and care of this patient. The physician did have a face to face encounter with the patient.
[2019-03-22] MEDS ORDERED: DILAUDID IV ONE ×3 (04:15→08:54)
[2019-03-22 04:17] LABS: BASO# 0.04 X1000 (0.0-0.2); BASO% 0.2 % (0.0-0.8); EOS# 0.07 X1000 (0.0-0.7); EOS% 0.4 % (0.0-10.0); HEMATOCRIT 51.6 % (37.0-47.0); HEMOGLOBIN 17.7 g/dL (12.0-16.0); IMM GRAN# 0.06 X1000 (0.0-0.04); IMM GRAN% 0.3 % (0.0-0.5); LYMPH# 1.58 X1000 (1.2-3.4); LYMPH% 8.8 % (20.5-51.1); MCH 33.3 PG (27-31); MCHC 34.3 g/dL (33-37); MCV 97.2 FL (81-99); MONO# 0.77 X1000 (0.11-0.59); MONO% 4.3 % (1.7-9.3); MPV 10.1 FL (7.4-10.4); NEUT# 15.46 X1000 (1.4-6.5); PLT 271 X1000 (130-400); RBC 5.31 XMIL (4.2-5.4); RDW 15.6 % (11.5-14.5); WBC 17.98 X1000 (4.8-10.8)
[2019-03-22 05:16] LABS: AGAP 16; ALBUMIN 5.1 g/dL (3.5-5.0); ALKALINE PHOSPHATASE 98 U/L (32-104); BUN 16 mg/dL (8-22); CALCIUM 10.1 mg/dL (8.8-10.2); CHLORIDE 97 mmol/L (98-107); COSMO 284; CREATININE 0.6 mg/dL (0.5-0.9); ESTIMATED GFR > 60; GLUCOSE 131 mg/dL (70-104); GOT 36 U/L (10-30); GPT 52 U/L (10-36); LIPASE 7 U/L (13-60); POTASSIUM 4.4 mmol/L (3.5-5.1); SODIUM 141 mmol/L (136-145); TCO2 28 mmol/L (25-35); TOTAL PROTEIN 8.1 g/dL (6.3-8.3)
[2019-03-22] MEDS ORDERED: ZOSYN 3.375 GM in NS 50 ML IV ONE (06:11)
[2019-03-22 06:24] LABS: INR 0.94
[2019-03-22 06:25] LABS: PTT 25.4 Seconds (22.3-41.8)
[2019-03-22 06:33] LABS: BILIRUBIN URINE NEGATIVE (NEGATIVE); BLOOD URINE 2+ (NEGATIVE); CLARITY CLEAR (CLEAR); COLOR AMBER; GLUCOSE URINE NEGATIVE (NEGATIVE); KETONE URINE TRACE mg/dL (NEGATIVE); LEUKOCYTES URINE 1+ (NEGATIVE); NITRITE URINE NEGATIVE (NEGATIVE); PROTEIN URINE 1+(30 mg/dL) mg/dL (NEGATIVE); SP GRAVITY URINE 1.025; UROBILINOGEN URINE NORMAL
[2019-03-22] MEDS ORDERED: NS 1,000 ML IV ONE (06:41)
[2019-03-22 06:42] LABS: URINE BACTERIA 4+ /HFP; URINE EPITHELIAL CELLS >10 /HPF (<10); URINE RBC <10 /HPF (<10)
[2019-03-22] MEDS ORDERED: NS 500 ML IV ONE (06:42)
[2019-03-22 06:43] LABS: URINE CAST NONE SEEN /LPF; URINE CRYSTAL NONE SEEN /HPF; URINE SOURCE CLEAN CATCH; URINE YEAST NONE SEEN /HPF
--- NOTE | 2019-03-22 07:34 | Diag Imaging Result Doc PS360 ---
EXAM: CHEST-PORTABLE - 03/22/2019 HISTORY: ELEVATED WHITE COUNT TECHNIQUE: Portable chest COMPARISON: 10/26/2018 FINDINGS: Heart size appears normal. There is mild prominence of perihilar markings which appears to be chronic. There is no acute consolidation, pleural effusion, or pneumothorax identified. IMPRESSION: No acute changes. Electronically signed by Hosea Slaughter 03/22/2019 7:32 AM
--- NOTE | 2019-03-22 07:42 | Diag Imaging Result Doc PS360 ---
EXAM: CT ABD/PELVIS W/IV CONT ONLY - 03/22/2019 HISTORY: abdominal pain, nausea,vomiting TECHNIQUE: CT abdomen/pelvis with intravenous contrast. No oral contrast administered per request of the referring provider. COMPARISON: 09/26/2014 FINDINGS: The visualized lung bases appear clear. There are no substantial abnormalities of the liver, spleen, adrenal glands, or pancreas identified. The gallbladder is surgically absent. The bilateral kidneys enhance homogeneously. There is no hydronephrosis. There are no substantially enlarged lymph nodes identified. There are atherosclerotic calcifications noted. There are lumbar spine postsurgical changes noted. The stomach is distended with fluid. There is distention of proximal small bowel with fluid and air to 4 cm. The distal small bowel is nondistended. There is apparent transition from distended to nondistended at the quadrant. There is fecal-like material in the distal most distended small bowel. The transition. These findings are suspicious for small bowel obstruction. The appendix is unremarkable. There is colonic diverticulosis which is most extensive at the sigmoid. There is no indication of diverticulitis. There is no free air, free fluid, or abscess identified. IMPRESSION: Small bowel obstruction, with distended proximal small bowel and nondistended distal bowel. Apparent transition from distended to nondistended at the left lower quadrant. Uncomplicated colonic diverticulosis. No abscess. No free air. The on-call radiologist provided preliminary results at 6:05 AM on 03/22/2019. This exam was performed using automated exposure control, adjustment of mA or kV according to patient size, and/or use of iterative reconstruction technique. Electronically signed by Hosea Slaughter 03/22/2019 7:40 AM
[2019-03-22] MEDS ORDERED: DILAUDID ONE (08:52)
[2019-03-22] MEDS ORDERED: DILAUDID IV PRN (10:53)
--- NOTE | 2019-03-22 11:06 | Diag Imaging Result Doc PS360 ---
EXAM: KUB ABDOMEN HISTORY: NG tube placement TECHNIQUE: Abdomen single view COMPARISON: 11/02/2013 FINDINGS: Nasogastric tube overlies the stomach. The gallbladder has been removed. Prior surgery to the lower lumbar spine. There are distended air-filled loops of bowel in the lower abdomen. IMPRESSION: Nasogastric tube within the stomach. Electronically signed by Joss Tobar 03/22/2019 11:04 AM
[2019-03-22] MEDS: ZOSYN 3.375 GM in NS 50 ML IV SCH ×4 (11:07→23:22)
[2019-03-22 16:31] LABS: BASO# 0.04 X1000 (0.0-0.2); BASO% 0.2 % (0.0-0.8); EOS# 0.08 X1000 (0.0-0.7); EOS% 0.5 % (0.0-10.0); HEMATOCRIT 50.1 % (37.0-47.0); HEMOGLOBIN 16.5 g/dL (12.0-16.0); IMM GRAN# 0.05 X1000 (0.0-0.04); IMM GRAN% 0.3 % (0.0-0.5); LYMPH# 2.32 X1000 (1.2-3.4); LYMPH% 14.2 % (20.5-51.1); MCH 33.3 PG (27-31); MCHC 32.9 g/dL (33-37); MCV 101.2 FL (81-99); MONO# 1.18 X1000 (0.11-0.59); MONO% 7.2 % (1.7-9.3); MPV 9.7 FL (7.4-10.4); NEUT# 12.65 X1000 (1.4-6.5); NEUT% 77.6 % (42.2-75.2); PLT 234 X1000 (130-400); RBC 4.95 XMIL (4.2-5.4); WBC 16.32 X1000 (4.8-10.8)
[2019-03-22 16:48] LABS: AGAP 15; ALBUMIN 4.5 g/dL (3.5-5.0); ALKALINE PHOSPHATASE 85 U/L (32-104); BUN 17 mg/dL (8-22); CALCIUM 9.1 mg/dL (8.8-10.2); CHLORIDE 101 mmol/L (98-107); COSMO 287; CREATININE 0.6 mg/dL (0.5-0.9); ESTIMATED GFR > 60; GLUCOSE 115 mg/dL (70-104); GOT 26 U/L (10-30); GPT 43 U/L (10-36); POTASSIUM 3.8 mmol/L (3.5-5.1); SODIUM 143 mmol/L (136-145); TCO2 27 mmol/L (25-35); TOTAL PROTEIN 7.1 g/dL (6.3-8.3)
[2019-03-22] MEDS: DILAUDID IV PRN ×3 (17:27→23:26)
--- NOTE | 2019-03-22 18:48 | HISTORY AND PHYSICAL ---
HISTORY OF PRESENT ILLNESS: This is a 63-year-old clinic patient who presented to the emergency room this morning complaining of belly pain. She has a history of non-Hodgkin lymphoma which is currently in remission. She is status post cholecystectomy. She has had a previous bowel obstruction. She has had chronic diarrhea ever since she had her gallbladder removed. She has severe COPD secondary to smoking, on home oxygen and nebulizer treatments. She is a former alcoholic but still continues to use cigarettes. She grades it as a 9/10 abdominal cramping and distention during the night after eating at [employer]. She vomited up some pizza. She denies chest pain, worsening shortness of breath or productive cough. MEDICATIONS ON ADMISSION: Omeprazole 20 daily, trazodone 200 at bedtime, Xanax 1 mg b.i.d., levothyroxine 100 mcg daily, [*]1 p.o. every 6 hours p.r.n., clonidine 0.1 t.i.d. p.r.n. She is also taking desvenlafaxine 100 mg daily. ALLERGIES: Nubain, neomycin-polymyxin, bacitracin. PAST MEDICAL HISTORY: She has had hypertension and dyslipidemia, asthma, COPD, smoker, GERD, non- Hodgkin lymphoma. She has had seizures and epilepsy. She has had a history of PRES syndrome. She has some hypothyroidism. PAST SURGICAL HISTORY: She has had a previous cholecystectomy. She has had an indwelling port device. She has had orthopaedic surgeries, cataracts. REVIEW OF SYSTEMS: CONSTITUTIONAL: She denies any fever of chills or any significant weight gain or weight loss. EYES: No change in visual acuity. EARS/NOSE/THROAT: No pharyngitis, otitis, or sinusitis. CARDIOVASCULAR: She denies chest pain, palpitations, PND or orthopnea. RESPIRATORY: Denies shortness of breath, wheeze, cough, hemoptysis. GASTROINTESTINAL: Abdominal pain and nausea with vomiting. Denies hematemesis, constipation or rectal bleeding. : No dysuria, polyuria or pyuria. Hematuria. MUSCULOSKELETAL: Negative skin. No rashes or lesions. NEUROLOGIC: No symmetrical findings. PSYCHIATRIC: Chronic anxiety . ENDOCRINE: Thyroid hormone replacement. No diabetes. Female hormone replacement. HEMATOLOGICAL: No clots, SVTs, DVTs or PTEs. ALLERGIES: Asthma and hay fever. DIAGNOSTIC DATA: While in the ER, she had several scans done, including a chest x-ray that showed normal heart size, mild prominence of the perihilar markings which appeared to be chronic, no acute consolidation, pleural effusions or pneumothorax identified. She had a belly film with a nasogastric tube which overlies the stomach, and the gallbladder has been removed. Prior surgery to the lower lumbar spine. There are distended, air-filled loops of bowel in the lower abdomen. Impression: Nasogastric tube in the stomach. Her CT showed the lung bases clear. No substantial abnormalities of the liver, spleen, adrenal glands or pancreas identified. The gallbladder is surgically absent. The bilateral kidneys are enhanced homogeneously. There is no hydronephrosis. There are no substantial enlarged lymph nodes identified. There are atherosclerotic changes and calcifications in her lumbar spine. Postsurgical changes noted. The stomach is distended with fluid. There is distention of the proximal small bowel with fluid and air to 4 cm. The distal small bowel is nondistended. There is an apparent transition from distended to non-distended at that quadrant. There is a fecal-like material in the distalmost distended small bowel. These findings are suspicious for small bowel obstruction. The appendix is unremarkable. There is colonic diverticulosis which is most extensive in the sigmoid. There is no indication of diverticulitis and no free air. No free fluid or abscess. Impression: Small bowel obstruction with distended proximal small bowel and non-distended distal bowel. Apparent transition from distended to non-distended is at the left lower quadrant uncomplicated diverticulosis. No free air. No abscess. LABORATORY DATA: White count was 18,000, hematocrit 51.6, platelet count 271,000. Coags normal. Chemistries: Sodium 141, potassium 4.4, chloride 97. CO2 was 28, BUN 16,creatinine 0.6, GFR greater than 60. Glucose 131, calcium 10.1. Total bilirubin 0.5, AST 36, ALT 52, alkaline phosphatase 98. CK 38. Troponin less than 0.01. Total protein 8.1, albumin 5.1. Globulin 3, albumin-globulin ratio 2, lipase 7. Plasma lactates 2.5, 2.8 and 2.7. Urinalysis: 1.025 specific gravity, 1+ protein, 2+ blood, 1+ WBCs, 10-20 WBCs, greater than 10 epithelial cells, 4+ bacteria. PHYSICAL EXAMINATION: VITAL SIGNS: Temperature 98.8, pulse 107, respiratory rate 18, BP 173/73. 02 saturation was 93% on room air. HEENT: Head is normocephalic. Eyes: PERRL. EOMs intact. NECK: Supple. Thyroid without enlargement or nodules. Carotids bounding without bruits. CHEST: Increased AP diameter. Diminished breath sounds. Rhonchi. CARDIOVASCULAR: Regular rhythm and rate. S1 and S2 were normal. ABDOMEN: Distended. It was not rigid. There was no rebound. Bowel sounds were relatively quiet. EXTREMITIES: Negative for clubbing, cyanosis, or edema NEUROLOGIC: Intact. ADMITTING DIAGNOSES: 1. Abdominal pain, likely small bowel obstruction. 2. History of non-Hodgkin lymphoma. 3. Thyroid disease with replacement therapy. 4. History of chronic obstructive pulmonary disease. 5. History of alcohol abuse. cc: Esequiel Virk MD
[2019-03-23] MEDS: DILAUDID IV PRN ×7 (02:19→22:09)
[2019-03-23] MEDS: ZOSYN 3.375 GM in NS 50 ML IV SCH ×3 (05:21→20:04)
--- NOTE | 2019-03-23 07:08 | GENERAL SURGERY CONSULTATION ---
DATE: 03/22/2019 REQUESTING PHYSICIAN: Dr. Virk. REASON FOR CONSULTATION: Abdominal pain with small bowel obstruction. HISTORY OF PRESENT ILLNESS: A 63-year-old female with a history of non- Hodgkin's lymphoma, COPD, alcoholism and tobacco use, presenting with generalized abdominal pain, cramping and distention, starting prior to presentation. She had a CT scan that showed a bowel obstruction with some fecalization in her small bowel, which may suggest some degree of chronic pain. She had chronic obstruction. She had an NG tube placed. She is feeling better right now. I was asked to weigh an opinion. Most of her pain is on the right lower quadrant at this point. It is crampy in nature. PAST MEDICAL HISTORY: Includes 1. COPD. 2. History of lymphoma. 3. History of bowel obstruction. 4. History of chronic diarrhea. 5. Alcohol abuse. 6. Tobacco use. 7. Bipolar, depression, anxiety. 8. Hypothyroidism. PAST SURGICAL HISTORY: Includes 1. Cataract surgery. 2. Cholecystectomy. 3. Left shoulder surgery. 4. Cervical fusion. 5. Lumbar spine fusion. 6. Lymph node biopsy. SOCIAL HISTORY: Current smoker. FAMILY HISTORY: Reviewed with patient, noncontributory. ALLERGIES: 1. Neosporin. 2. Nubain. 3. Lamictal. HOME MEDICATIONS: Reviewed. REVIEW OF SYSTEMS: A full 10-point review of systems obtained, negative as specified in HPI. PHYSICAL EXAMINATION: Vital Signs: Patient is currently afebrile. Her vital signs are stable. General: No acute distress. Alert, interactive, female looks stated age. HEENT: Normocephalic, atraumatic. Pupils equal, round, reactive to light. Mucous membranes moist. Oropharynx benign. Neck: Supple. Trachea midline. Cardiovascular: Regular rate and rhythm. Lungs: Grossly clear. Abdomen: Soft, protuberant. Some mild tenderness in the right lower quadrant. No peritoneal signs at this time. Extremities: Moves all extremities. Neurologic: Grossly intact. Skin: No signs of jaundice. Vascular: All extremities perfused. LABORATORY DATA: White blood cell count is 16. Lactic acid 2.7. Remainder of labs reviewed. CT scan independently reviewed and radiology report reviewed. ASSESSMENT AND PLAN: A 63-year-old female with bowel obstruction. 1. Bowel obstruction. At this time, she seems to have had these before and resolved nonoperatively. It does appear that she might have a chronic stricture down in the distal small bowel. We will get a small bowel series to evaluate this. If she does have a stricture, may need exploratory laparotomy, resection of this bowel. If no contrast passes through, may just manage her nonoperatively with NG tube and bowel rest. We will order the small bowel series for tomorrow. 2. Multiple medical comorbidities currently being managed by her primary care physician, Dr. Virk. cc: MD Esequiel Romo MD MTDD
[2019-03-23] MEDS ORDERED: ZOFRAN IV PRN (08:39)
[2019-03-23 09:55] LABS: BASO# 0.04 X1000 (0.0-0.2); BASO% 0.4 % (0.0-0.8); EOS# 0.21 X1000 (0.0-0.7); EOS% 2.2 % (0.0-10.0); HEMATOCRIT 47.2 % (37.0-47.0); HEMOGLOBIN 15.4 g/dL (12.0-16.0); IMM GRAN# 0.02 X1000 (0.0-0.04); IMM GRAN% 0.2 % (0.0-0.5); LYMPH# 1.77 X1000 (1.2-3.4); LYMPH% 18.2 % (20.5-51.1); MCH 33.6 PG (27-31); MCHC 32.6 g/dL (33-37); MCV 103.1 FL (81-99); MONO# 0.58 X1000 (0.11-0.59); MPV 9.4 FL (7.4-10.4); NEUT# 7.11 X1000 (1.4-6.5); PLT 224 X1000 (130-400); RBC 4.58 XMIL (4.2-5.4); RDW 15.7 % (11.5-14.5); WBC 9.73 X1000 (4.8-10.8)
[2019-03-23 10:09] LABS: AGAP 15; ALBUMIN 4.6 g/dL (3.5-5.0); ALKALINE PHOSPHATASE 83 U/L (32-104); BUN 17 mg/dL (8-22); CALCIUM 9.2 mg/dL (8.8-10.2); CHLORIDE 100 mmol/L (98-107); COSMO 290; CREATININE 0.7 mg/dL (0.5-0.9); ESTIMATED GFR > 60; GLUCOSE 127 mg/dL (70-104); GOT 18 U/L (10-30); GPT 34 U/L (10-36); POTASSIUM 3.7 mmol/L (3.5-5.1); SODIUM 144 mmol/L (136-145); TCO2 29 mmol/L (25-35); TOTAL PROTEIN 7.2 g/dL (6.3-8.3)
--- NOTE | 2019-03-23 13:15 | Diag Imaging Result Doc PS360 ---
EXAM: SMALL BOWEL SERIES ONLY - 03/23/2019 HISTORY: small bowel obstruction TECHNIQUE: Small bowel series. COMPARISON: 03/22/2019 CT abdomen/pelvis FINDINGS: The barium appears to reach the colon by the three hour image. There is mild thickening of mucosal folds at the left lower quadrant. There is no discrete stricture or obstruction identified. IMPRESSION: Mild mucosal thickening at left lower quadrant. No discrete stricture or obstruction. Electronically signed by Hosea Slaughter 03/23/2019 1:13 PM
--- NOTE | 2019-03-23 14:20 | GENERAL SURGERY PROGRESS NOTE ---
DATE: 03/23/2019 SUBJECTIVE: Patient doing about the same. She did have a recorded bowel movement. OBJECTIVE: Vital Signs: Patient is currently afebrile. Her vital signs stable. General: No acute distress. HEENT: Normocephalic, atraumatic. Pupils equal, round, reactive to light. Mucous membranes moist, oropharynx benign. Neck: Supple. Trachea midline. NG tube in place and had 1800 out. Cardiovascular: Regular rate and rhythm. Lungs: Grossly clear. Abdomen: Soft, some mild discomfort but no peritoneal signs. Extremities: Moves all extremities. Neurologic: Grossly intact. Skin: No signs of jaundice. Vascular: All extremities perfused. LABORATORY: None this morning. Abdominal film pending. ASSESSMENT AND PLAN: A 63-year-old with bowel obstruction. 1. Bowel obstruction. At this time, we will await small-bowel series. Follow up with the results. If he does have a stricture, may need to consider surgical intervention. Otherwise, we will follow up with the results. 2. Continue current treatment. cc: MD Esequiel Romo MD
[2019-03-23] MEDS ORDERED: STERILE WATER INJ. INJ PRN (19:35)
[2019-03-23] MEDS ORDERED: SODIUM CHLORIDE 0.9% INJ SCH (19:45)
[2019-03-23] MEDS ORDERED: GEODON IM SCH (21:00)
[2019-03-23] MEDS: PROTONIX IV SCH (21:03)
[2019-03-24] MEDS: DILAUDID IV PRN ×5 (00:49→12:57)
[2019-03-24] MEDS: ZOSYN 3.375 GM in NS 50 ML IV SCH ×2 (01:31→09:54)
[2019-03-24 08:04] LABS: HEMOGLOBIN 15.3 g/dL (12.0-16.0); MCH 32.8 PG (27-31); MCHC 31.9 g/dL (33-37); MCV 102.8 FL (81-99); MPV 9.5 FL (7.4-10.4); RBC 4.67 XMIL (4.2-5.4); RDW 15.5 % (11.5-14.5); WBC 8.18 X1000 (4.8-10.8)
--- NOTE | 2019-03-24 08:10 | Diag Imaging Result Doc PS360 ---
EXAM: ABDOMEN FLAT/UPRIGHT INDICATION: SBO TECHNIQUE: 3 views COMPARISON: 03/23/2019 FINDINGS: The NG tube is in stable position. There is retained barium in the colon from a recent barium small bowel follow-through performed yesterday. This reveals mild to moderate sigmoid colonic diverticulosis. There are unremarkable bowel gas patterns. There is no evidence of bowel obstruction or free abdominal gas. The mild gaseous distended loops of small bowel seen on previous studies has grossly resolved. IMPRESSION: Mildly gas distended loops of small bowel seen on previous studies has grossly resolved. Electronically signed by Piter Apodaca 03/24/2019 8:08 AM
[2019-03-24 08:26] LABS: AGAP 17; BUN 18 mg/dL (8-22); CHLORIDE 99 mmol/L (98-107); COSMO 289; CREATININE 0.5 mg/dL (0.5-0.9); GLUCOSE 109 mg/dL (70-104); POTASSIUM 3.6 mmol/L (3.5-5.1); SODIUM 144 mmol/L (136-145); TCO2 28 mmol/L (25-35)
[2019-03-24 08:27] LABS: ALBUMIN 4.6 g/dL (3.5-5.0); ALKALINE PHOSPHATASE 82 U/L (32-104); CALCIUM 9.2 mg/dL (8.8-10.2); ESTIMATED GFR > 60; GOT 22 U/L (10-30); GPT 32 U/L (10-36); TOTAL PROTEIN 7.3 g/dL (6.3-8.3)
[2019-03-24] MEDS ORDERED: STERILE WATER INJ. INJ PRN (10:03)
[2019-03-24] MEDS ORDERED: GEODON IM PRN (10:03)
[2019-03-24 19:29] VITALS: BP 116/57
[2019-03-24] MEDS: PROTONIX IV SCH (19:38)
== END 2019-03-24 20:55 | disposition home or self-care (01) | DRG 389 ==
LOC: P.ED 03:07 → P.MEDSURG 08:57
PROVIDERS: ADMIT Internal Medicine; ATTEND Internal Medicine
CPT/HCPCS: 71010; 71045; 74000; 74018; 74019; 74020; 74177; 74250; 80053; 81001; 82550; 83605; 83690; 84484; 85025; 85027; 85610; 85730; 87040; 87088; 94761; C9113; J1170; J2405; J2543; J3486; J7030; S0164